=== PATIENT | female | born 1995 | race Two or more races ===

== ENCOUNTER 2025-06-11 18:27 | Inpatient (IN) | payer MEDICAID, OTHER ==
[~2025-06-11] VITALS: Ht 167.6 cm; Wt 126.4 kg
[2025-06-11 18:51] LABS: Hematocrit 39.1 % (36.0-46.0); Hemoglobin 12.9 g/dL (12.2-16.2); Mean Corpuscular Hemoglobin 27.6 pg (28.0-32.0); Mean Corpuscular Volume 83.4 fL (80.0-100.0); Nucleated Red Blood Cells % 0.1 %
[2025-06-11 19:04] LABS: Albumin 4.8 g/dL (3.2-4.8); Anion Gap 8 (5-15); BUN/Creatinine Ratio 11.2 (10.0-20.0); Blood Urea Nitrogen 10 mg/dL (9-23); Calcium 9.9 mg/dL (8.7-10.4); Carbon Dioxide 28 mmol/L (20-31); Chloride 107 mmol/L (98-107); Glucose 102 mg/dL (74-106); Lipase 38 U/L (12-53); Potassium 3.9 mmol/L (3.5-5.1); Sodium 143 mmol/L (136-145); Total Protein 7.8 g/dL (5.7-8.2)
[2025-06-11 19:09] LABS: Alanine Aminotransferase 620 U/L (7-40); Alkaline Phosphatase 294 U/L (46-116); Bilirubin, Total 1.4 mg/dL (0.2-1.0)
[2025-06-11] MEDS: DICYCLOMINE HCL 10 MG CAP PO ONE (20:05)
[2025-06-11] MEDS: KETOROLAC TROMETH 60MG/2ML VIAL IM ONE (20:06)
--- NOTE | 2025-06-11 20:50 | ED.PDOC ---
GI ASSESSMENT HPI Comments 29 year old female c/o RUQ PAIN worse pain X 1 DAY. unprovoked, associated with nausea. h/o gallstones Chief Complaint: Abdominal Pain Time Seen by MD: 18:31 Allergies: Coded Allergies: NO KNOWN ALLERGIES (Unverified , 06/11/25) Information Source: Patient Mode of Arrival: Ambulatory Duration: Since onset Past Medical History PAST MEDICAL HISTORY: Denies Past Medical History (Other): gallstones Social History Smoker: Non-Smoker Alcohol: Denies ETOH Use Drugs: Denies Drug Use Constitutional: reports: malaise, others Gastrointestinal: reports: abdominal pain, nausea All Other Systems: Reviewed and Negative Physical Exam General Appearance: Moderate Distress HEENT: Normal ENT Inspection, Pharynx Normal, TMs Normal Neck: Full Range of Motion, Non-Tender, Normal, Normal Inspection Respiratory: Chest Non-Tender, Lungs Clear, No Accessory Muscle Use, No Respir atory Distress, Normal Breath Sounds Cardiovascular: No Edema, No JVD, No Murmur, No Gallop, Normal Peripheral Pulses, Regular Rate/Rhythm Breast Exam: Deferred Gastrointestinal: Tenderness Genitalia: Deferred Pelvic: Deferred Rectal: Deferred Extremities: No calf tenderness, Normal capillary refill, Normal inspection, Normal range of motion, Non-tender, No pedal edema Musculoskeletal : Apperance: Normal Neurologic: Alert, 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 Was a procedure done?: No GI differential Dx Differential Diagnosis: Cholangitis, Cholecystitis, Diverticular disease, Gastritis/PUD, Gastroenteritis, GI hemorrhage, Pancreatitis, Kidney Stone, Other X-Ray, Labs, Meds, VS Vital Signs Date Time Temp Pulse Resp B/P (MAP) Pulse Ox O2 Delivery O2 Flow Rate FiO2 06/11/25 20:57 Room Air* 0 21 06/11/25 19:43 89 20 100 Room Air 06/11/25 19:43 98.3 89 20 120/81 (94) 100 98.3 06/11/25 18:29 98.3 93 13 123/85 100 98.3 Lab Test 06/11/25 21:27 06/11/25 18:42 Range/Units Urine Color Dark-yellow Yellow Urine Clarity Turbid H Clear Urine pH 6.5 5.0-9.0 Urine Specific [place] 1.036 H 1.001-1.035 Urine Protein Trace H Negative Urine Ketones Negative Negative Urine Blood Negative Negative /uL Urine Nitrite Negative Negative Urine Bilirubin 1+ H Negative Urine Urobilinogen 12 H Negative mg/dL Urine Leukocyte Esterase Trace Negative /uL Urine RBC 1 0 - 4 /hpf Urine Microscopic WBC 2 0-5 /HPF Urine Squamous Epithelial Cells Mod <5 /hpf Urine Bacteria Few H None Seen /hpf Urine Mucus Few None Seen Urine Glucose Normal Normal mg/dL Urine Test Negative Negative White Blood Count 3.7 L 4.4-10.8 10^3/uL Red Blood Count 4.70 4.0-5.20 10^6/uL Hemoglobin 12.9 12.2-16.2 g/dL Hematocrit 39.1 36.0-46.0 % Mean Corpuscular Volume 83.4 80.0-100.0 fL Mean Corpuscular Hemoglobin 27.6 L 28.0-32.0 pg Mean Corpuscular Hemoglobin Concent 33.1 32.0-36.0 g/dL Red Cell Distribution Width 14.3 11.8-14.3 % Platelet Count 213 140-450 10^3/uL Mean Platelet Volume 9.7 6.9-10.8 fL Neutrophils (%) (Auto) 57.6 37.0-80.0 % Lymphocytes (%) (Auto) 31.2 10.0-50.0 % Monocytes (%) (Auto) 6.9 0.0-12.0 % Eosinophils (%) (Auto) 3.7 0.0-7.0 % Basophils (%) (Auto) 0.6 0.0-2.0 % Neutrophils # (Auto) 2.1 1.6-8.6 10 ^3/uL Lymphocytes # (Auto) 1.2 0.4-5.4 10 ^3/uL Monocytes # (Auto) 0.3 0-1.3 10 ^3/uL Eosinophils # (Auto) 0.1 0-0.8 10 ^3/uL Basophils # (Auto) 0 0-0.2 10 ^3/uL Nucleated Red Blood Cells 0.1 % Sodium Level 143 136-145 mmol/L Potassium Level 3.9 3.5-5.1 mmol/L Chloride Level 107 98-107 mmol/L Carbon Dioxide Level 28 20-31 mmol/L Anion Gap 8 5-15 Blood Urea Nitrogen 10 9-23 mg/dL Creatinine 0.89 0.550-1.02 mg/dL Glomerular Filtration Rate Calc 91 >90 mL/min BUN/Creatinine Ratio 11.2 10.0-20.0 Serum Glucose 102 74-106 mg/dL Calcium Level 9.9 8.7-10.4 mg/dL Total Bilirubin 1.4 H 0.2-1.0 mg/dL Aspartate Amino Transferase (AST) 327 H 13-40 U/L Alanine Aminotransferase (ALT) 620 H 7-40 U/L Alkaline Phosphatase 294 H 46-116 U/L Total Protein 7.8 5.7-8.2 g/dL Albumin 4.8 3.2-4.8 g/dL Lipase 38 12-53 U/L Current Medications Medications (Trade) Dose Ordered Sig/[place] Route Start Time Stop Time Status Last Admin Ketorolac Tromethamine (Toradol Injection) 30 mg ONCE ONCE IM 06/11/25 19:30 06/11/25 19:31 DC 06/11/25 20:06 Dicyclomine HCl (Bentyl Capsule) 20 mg ONCE ONCE PO 06/11/25 19:30 06/11/25 19:31 DC 06/11/25 20:05 Time of 1ST Reevaluation: 19:30 Reevaluation 1ST: Unchanged Patient Education/Counseling: Diagnosis, Treatment Family Education/Counseling: No Family Present SEPSIS Sepsis Screen Date sepsis recognized/suspect: Jun 11, 2025 Time Sepsis recognized/suspect: 1943 Recent Procedure: No On Antibiotic Therapy: No Respiratory Rate >20: No Heart Rate >90: No Temp<36 C (96.8 F) or >38.3 C: No SBP <90 or MAP <65 mmHG: No New Acute Mental Status Change: No Is the patient on CPAP, BIPAP,: No Physician Orders Gallbladder (06/11/25 19:25) Vital Signs Date Time Temp Pulse Resp B/P (MAP) Pulse Ox O2 Delivery O2 Flow Rate FiO2 06/11/25 20:57 Room Air* 0 21 06/11/25 19:43 89 20 100 Room Air 06/11/25 19:43 98.3 89 20 120/81 (94) 100 98.3 06/11/25 18:29 98.3 93 13 123/85 100 98.3 Laboratory Tests Test 06/11/25 18:42 White Blood Count 3.7 10^3/uL (4.4-10.8) L Medications Medications Dose Ordered Sig/[place] Route Start Time Stop Time Status Last Admin Dose Admin Dicyclomine HCl 20 mg ONCE ONCE PO 06/11/25 19:30 06/11/25 19:31 DC 06/11/25 20:05 Ketorolac Tromethamine 30 mg ONCE ONCE IM 06/11/25 19:30 06/11/25 19:31 DC 06/11/25 20:06 Departure 1 Departure Time of Disposition: 22:17 Impression: Primary Impression: RUQ abdominal pain Additional Impression: Acute cholecystitis Disposition: ADMITTED INPATIENT Condition: Guarded Discharged With: Self Comments Patient's ultrasound suggests acute cholecystitis. Patient was given IV fluids and IV Zosyn antibiotics. Patient will need admission for supportive care and surgery consultation Critical Care Note Critical Care Time?: No Stability Stability form required: No Heart Score Heart Score: Heart Score Response (Comments) Value History N/A 0 EKG N/A 0 Age N/A 0 Risk Factors N/A 0 Troponin N/A 0 Total 0 ELYSSA BAR MD Jun 11, 2025 20:50
[2025-06-11] MEDS: ONDANSETRON HCL 4 MG/2 ML VIAL IV ONE (20:53)
[2025-06-11] MEDS: HYDROmorphone HCL 2 MG/ML VL/or syr IV ONE (20:53)
--- NOTE | 2025-06-11 21:28 | DVH ---
INDICATION: RUQ pain TECHNIQUE: Multiple real-time sonographic images of the abdomen were obtained. COMPARISON: None FINDINGS: Hepatic parenchyma consistent with steatosis The liver measures 17 cm. No intrahepatic biliary ductal dilatation is noted. The gallbladder wall measures 0. 3 2 cm and is minimally thickened. Stones and sludge are noted in the gallbladder. The common duct measures 11.2 mm and is mildly dilated. No pericholecystic fluid is noted. Positive sonographic Morris's sign. The right kidney measures 10.62 cm. No hydronephrosis. The pancreas is not well visualized due to obscuration from bowel gas. IMPRESSION: 1. Gallbladder is distended with sludge and stones. Minimally thickened gallbladder wall is seen with mildly dilated common bile duct. Positive sonographic Morris's sign is seen suggesting acute cholecystitis. 2. Liver measures 17 cm in length with parenchymal changes consistent with steatosis.
[2025-06-11 22:00] LABS: Urine Protein, UAD TRACE (Negative)
[2025-06-11] MEDS ORDERED: ONDANSETRON HCL 4 MG/2 ML VIAL IV PRN (23:15)
--- NOTE | 2025-06-11 23:42 | DVH ---
CHEST RADIOGRAPH Indication: preop Technique: Single frontal view of the chest was obtained COMPARISON: CT ABD/PEL on DOS: 05/01/25 FINDINGS: Lines and Tubes: None Lungs: Clear Pleura: No effusion. No pneumothorax. Cardiomediastinal contours: Unremarkable Bones: Unremarkable IMPRESSION: 1. No acute disease.
[2025-06-11 23:43] LABS: INR 1.09 (0.9-1.15); Partial Thromboplastin Time 29.9 SEC (24.5-34.5); Prothrombin Time 11.5 sec (9.3-11.8)
[2025-06-12] VITALS (9 sets, daily range): BP systolic 104–124; BP diastolic 57–80; PULSE 59–111; RESP 16–21; TEMP 97.3–98.6; O2SAT 95–99
[2025-06-12] MEDS: SODIUM CHLORIDE 0.9% 1,000 ML IV ONE ×2 (00:05→03:49)
[2025-06-12] MEDS: PANTOPRAZOLE 40 MG/10 ML VIAL INJ IV ONE (00:09)
[2025-06-12] MEDS: PIPERACILLIN-TAZOB 3.375GM 100 ML IV ONE (00:10)
--- NOTE | 2025-06-12 00:12 | DVHHP2 ---
History of Present Illness Reason for Visit: Abdominal pain History of Present Illness 29-year-old female presents for evaluation of abdominal pain. Patient reports a two month history of right upper quadrant that was initially intermittent. She states that over the past three days he has become more constant and worsens after eating a meal. She describes it as sharp nonradiating. Reports episodes of nausea without vomiting. She states being diagnosed with gallstones in the past. Past Medical History Gallstones Past Surgical History Denies Family History Noncontributory Smoke: No ALCOHOL: none Drugs: None Lives: with Family Review of Systems Review of Systems Review of systems are currently negative otherwise addressed in HPI. Allergies: Coded Allergies: NO KNOWN ALLERGIES (Unverified , 06/11/25) Medications Current Medications Medications Dose Ordered Sig/[place] Route Start Time Stop Time Status Last Admin Dose Admin Piperacillin Sod/ Tazobactam Sod 100 ml @ 25 mls/hr Q8H IV 06/12/25 05:00 Pantoprazole Sodium 40 mg DAILY IV 06/12/25 10:00 Ondansetron HCl 4 mg Q4HP PRN IV 06/11/25 23:15 Exam Vital Signs Vital Signs Date Time Temp Pulse Resp B/P (MAP) Pulse Ox O2 Delivery O2 Flow Rate FiO2 06/11/25 20:57 Room Air* 0 21 06/11/25 19:43 89 20 100 06/11/25 19:43 98.3 120/81 (94) 98.3 Exam Gen: 29-year-old female, morbidly obese Skin: Warm, dry, normal color and texture, no rash. HEENT: Normocephalic atraumatic, mucous membranes moist and pink. Neck: Cervical and supraclavicular nodes normal without enlargement, trachea is midline, thyroid gland is normal without masses. Pulmonary: Clear to auscultation and percussion bilaterally. Cardiac: Regular rate and rhythm. No murmur Abdomen: Soft, right upper quadrant tenderness, nondistended, bowel sounds present all 4 quadrants, no guarding, no rigidity, no organomegaly. Extremities: No cyanosis, clubbing, no edema Neuro: Cranial nerves II through XII grossly intact, normal affect and speech, no focal motor deficits. Labs/Xrays ORDERING PHYSICIAN: ELYSSA BAR MD PROCEDURE(s): GBUS - GALLBLADDER REASON: RUQ pain ORDER NUMBER(s): [id number], ACCESSION NUMBER(s): [id number] INDICATION: RUQ pain TECHNIQUE: Multiple real-time sonographic images of the abdomen were obtained. COMPARISON: None FINDINGS: Hepatic parenchyma consistent with steatosis The liver measures 17 cm. No intrahepatic biliary ductal dilatation is noted. The gallbladder wall measures 0. 3 2 cm and is minimally thickened. Stones and sludge are noted in the gallbladder. The common duct measures 11.2 mm and is mildly dilated. No pericholecystic fluid is noted. Positive sonographic Morris's sign. The right kidney measures 10.62 cm. No hydronephrosis. The pancreas is not well visualized due to obscuration from bowel gas. IMPRESSION: 1. Gallbladder is distended with sludge and stones. Minimally thickened gallbladder wall is seen with mildly dilated common bile duct. Positive sonographic Morris's sign is seen suggesting acute cholecystitis. 2. Liver measures 17 cm in length with parenchymal changes consistent with steatosis. RING PHYSICIAN: JAKE SWAIN PROCEDURE(s): CXR1 - CHEST XRAY 1 VIEW REASON: preop ORDER NUMBER(s): [id number], ACCESSION NUMBER(s): [id number] CHEST RADIOGRAPH Indication: preop Technique: Single frontal view of the chest was obtained COMPARISON: CT ABD/PEL on DOS: 05/01/25 FINDINGS: Lines and Tubes: None Lungs: Clear Pleura: No effusion. No pneumothorax. Cardiomediastinal contours: Unremarkable Bones: Unremarkable IMPRESSION: 1. No acute disease. Labs Test 06/11/25 23:20 06/11/25 21:27 06/11/25 18:42 Range/Units Prothrombin Time 11.5 9.3-11.8 sec Prothrombin Time INR 1.09 0.9-1.15 Activated Partial Thromboplast Time 29.9 24.5-34.5 SEC Urine Color Dark-yellow Yellow Urine Clarity Turbid H Clear Urine pH 6.5 5.0-9.0 Urine Specific [place] 1.036 H 1.001-1.035 Urine Protein Trace H Negative Urine Ketones Negative Negative Urine Blood Negative Negative /uL Urine Nitrite Negative Negative Urine Bilirubin 1+ H Negative Urine Urobilinogen 12 H Negative mg/dL Urine Leukocyte Esterase Trace Negative /uL Urine RBC 1 0 - 4 /hpf Urine Microscopic WBC 2 0-5 /HPF Urine Squamous Epithelial Cells Mod <5 /hpf Urine Bacteria Few H None Seen /hpf Urine Mucus Few None Seen Urine Glucose Normal Normal mg/dL Urine Test Negative Negative White Blood Count 3.7 L 4.4-10.8 10^3/uL Red Blood Count 4.70 4.0-5.20 10^6/uL Hemoglobin 12.9 12.2-16.2 g/dL Hematocrit 39.1 36.0-46.0 % Mean Corpuscular Volume 83.4 80.0-100.0 fL Mean Corpuscular Hemoglobin 27.6 L 28.0-32.0 pg Mean Corpuscular Hemoglobin Concent 33.1 32.0-36.0 g/dL Red Cell Distribution Width 14.3 11.8-14.3 % Platelet Count 213 140-450 10^3/uL Mean Platelet Volume 9.7 6.9-10.8 fL Neutrophils (%) (Auto) 57.6 37.0-80.0 % Lymphocytes (%) (Auto) 31.2 10.0-50.0 % Monocytes (%) (Auto) 6.9 0.0-12.0 % Eosinophils (%) (Auto) 3.7 0.0-7.0 % Basophils (%) (Auto) 0.6 0.0-2.0 % Neutrophils # (Auto) 2.1 1.6-8.6 10 ^3/uL Lymphocytes # (Auto) 1.2 0.4-5.4 10 ^3/uL Monocytes # (Auto) 0.3 0-1.3 10 ^3/uL Eosinophils # (Auto) 0.1 0-0.8 10 ^3/uL Basophils # (Auto) 0 0-0.2 10 ^3/uL Nucleated Red Blood Cells 0.1 % Sodium Level 143 136-145 mmol/L Potassium Level 3.9 3.5-5.1 mmol/L Chloride Level 107 98-107 mmol/L Carbon Dioxide Level 28 20-31 mmol/L Anion Gap 8 5-15 Blood Urea Nitrogen 10 9-23 mg/dL Creatinine 0.89 0.550-1.02 mg/dL Glomerular Filtration Rate Calc 91 >90 mL/min BUN/Creatinine Ratio 11.2 10.0-20.0 Serum Glucose 102 74-106 mg/dL Calcium Level 9.9 8.7-10.4 mg/dL Total Bilirubin 1.4 H 0.2-1.0 mg/dL Aspartate Amino Transferase (AST) 327 H 13-40 U/L Alanine Aminotransferase (ALT) 620 H 7-40 U/L Alkaline Phosphatase 294 H 46-116 U/L Total Protein 7.8 5.7-8.2 g/dL Albumin 4.8 3.2-4.8 g/dL Lipase 38 12-53 U/L SEPSIS Sepsis Screen Date sepsis recognized/suspect: Jun 11, 2025 Time Sepsis recognized/suspect: 1943 Recent Procedure: No On Antibiotic Therapy: No Respiratory Rate >20: No Heart Rate >90: No Temp<36 C (96.8 F) or >38.3 C: No SBP <90 or MAP <65 mmHG: No New Acute Mental Status Change: No Is the patient on CPAP, BIPAP,: No Physician Orders Gallbladder (06/11/25 19:25) * Surgical Consult (06/11/25 ) Type And Screen (06/11/25 23:06) Chest Xray 1 View (06/11/25 23:06) Piperacillin-Tazob 3.375gm (Zosyn 3.375g (06/12/25 05:00) Pantoprazole (Protonix) (06/12/25 10:00) Sodium Chloride 0.9% (06/11/25 23:15) Admit (06/11/25 23:06) Ondansetron Hcl (Zofran) (06/11/25 23:15) Complete Blood Count (06/12/25 04:00) Comprehensive Metabolic Panel (06/12/25 04:00) Npo (Nothing By Mouth) Diet (06/12/25 Breakfast) Condition: Stable (06/11/25 23:06) Bedrest With Bathroom Privileg (06/11/25 23:06) Morphine Sulfate Injection (06/12/25 00:15) Vital Signs Date Time Temp Pulse Resp B/P (MAP) Pulse Ox O2 Delivery O2 Flow Rate FiO2 06/11/25 20:57 Room Air* 0 21 06/11/25 19:43 89 20 100 Room Air 06/11/25 19:43 98.3 89 20 120/81 (94) 100 98.3 06/11/25 18:29 98.3 93 13 123/85 100 98.3 Laboratory Tests Test 06/11/25 18:42 White Blood Count 3.7 10^3/uL (4.4-10.8) L Medications Medications Dose Ordered Sig/[place] Route Start Time Stop Time Status Last Admin Dose Admin Dicyclomine HCl 20 mg ONCE ONCE PO 06/11/25 19:30 06/11/25 19:31 DC 06/11/25 20:05 20 MG Ketorolac Tromethamine 30 mg ONCE ONCE IM 06/11/25 19:30 06/11/25 19:31 DC 06/11/25 20:06 30 MG Assessment/Plan Assessment/Plan Assessment Acute cholecystitis Neutropenia Transaminitis Morbid obesity Plan Admit the patient to [facility] to the hospitalist NPO Surgical consult Pain management Maintenance IV fluids Continue treatment per orders. Plan discussed with: Patient My Orders Orders - JAKE SWAIN Procedure Category Date Status Time * Surgical Consult CONS 06/11/25 Transmitted Type And Screen BBK 06/11/25 In Process 23:06 Chest Xray 1 View XY 06/11/25 Resulted 23:06 Piperacillin-Tazob PHA 06/12/25 In Process 3.375gm (Zosyn 3.375g 05:00 Pantoprazole PHA 06/12/25 In Process (Protonix) 10:00 Sodium Chloride 0.9% PHA 06/11/25 In Process 23:15 Admit ADMIT 06/11/25 Transmitted 23:06 Ondansetron Hcl PHA 06/11/25 In Process (Zofran) 23:15 Complete Blood Count LAB 06/12/25 Logged 04:00 Comprehensive LAB 06/12/25 Logged Metabolic Panel 04:00 Npo (Nothing By DIET 06/12/25 Transmitted Mouth) Diet Breakfast Condition: Stable LALA 06/11/25 In Process 23:06 Bedrest With Bathroom LALA 06/11/25 In Process Privileg 23:06 Morphine Sulfate PHA 06/12/25 Transmitted Injection 00:15 Date of Service: Jun 11, 2025 Billing Provider: JAKE SWAIN Common Visit Codes: [id number] INP/OBS CARE (HIGH) JAKE SWAIN AGACNP Jun 12, 2025 00:12
[2025-06-12] MEDS: MORPHINE SULFATE INJ 2 MG/ml SYRG IV PRN (01:02)
[2025-06-12] MEDS ORDERED: PIPERACILLIN-TAZOB 3.375GM 100 ML IV SCH (05:00)
[2025-06-12 06:08] LABS: Hematocrit 34.9 % (36.0-46.0); Hemoglobin 11.8 g/dL (12.2-16.2); Mean Corpuscular Hemoglobin 28.2 pg (28.0-32.0); Mean Corpuscular Volume 83.5 fL (80.0-100.0); Nucleated Red Blood Cells % 0.1 %
[2025-06-12 06:32] LABS: Albumin 3.8 g/dL (3.2-4.8); Anion Gap 11 (5-15); BUN/Creatinine Ratio 11.4 (10.0-20.0); Carbon Dioxide 22 mmol/L (20-31); Glucose 88 mg/dL (74-106); Sodium 143 mmol/L (136-145); Total Protein 6.3 g/dL (5.7-8.2)
[2025-06-12 06:34] LABS: Alanine Aminotransferase 591 U/L (7-40); Alkaline Phosphatase 263 U/L (46-116); Bilirubin, Total 1.8 mg/dL (0.2-1.0); Blood Urea Nitrogen 9 mg/dL (9-23); Calcium 8.7 mg/dL (8.7-10.4); Chloride 110 mmol/L (98-107); Potassium 3.5 mmol/L (3.5-5.1)
[2025-06-12] MEDS: PIPERACILLIN-TAZOB 3.375GM 100 ML IV SCH ×2 (08:16→15:12)
[2025-06-12] MEDS: PANTOPRAZOLE 40 MG/10 ML VIAL INJ IV SCH (08:16)
--- NOTE | 2025-06-12 10:24 | DVHPN2 ---
Progress Note Date Seen: Jun 12, 2025 Medical Necessity Reason Pt with a Central, PICC or Fol: No Subjective Patient reports: No new complaints Review of Systems: HEENT:Normal, CVS:Normal, RESPIRATORY:Normal, GI:Normal, :Normal, MSK:Normal, NEURO:Normal Objective vital signs Vital Sign Date Time Temp Pulse Resp B/P (MAP) Pulse Ox O2 Delivery O2 Flow Rate FiO2 06/12/25 09:00 98.3 66 18 104/80 (88) 97 98.3 06/12/25 00:33 Room Air* 0 21 Total Intake and Output 06/11/25 06/11/25 06/12/25 15:00 23:00 07:00 Intake Total 1100 ml Balance 1100 ml medications Current Medications Medications Dose Ordered Sig/[place] Route Start Time Stop Time Status Last Admin Dose Admin Pantoprazole Sodium 40 mg DAILY IV 06/12/25 10:00 06/12/25 08:16 40 MG Ondansetron HCl 4 mg Q4HP PRN IV 06/11/25 23:15 Morphine Sulfate 2 mg Q6HPRN PRN IV 06/12/25 00:15 06/12/25 01:02 2 MG Piperacillin Sod/ Tazobactam Sod 100 ml @ 25 mls/hr Q8H IV 06/12/25 08:00 06/12/25 08:16 25 MLS/HR Examination: GENERAL:Normal, HEENT:Normal, NECK:Normal, LUNGS:Normal, CVS:Normal, ABDOMEN:Normal, MSK:Normal, SKIN:Normal, NEURO:Normal, :Normal laboratory and microbiology Laboratory Tests 06/12/25 05:05 Test 06/12/25 05:05 Range/Units Serum Glucose 88 74-106 mg/dL Problem List/Assessment/Plan Problem List/Assessment/Plan #1 acute natalie with gallstones: surg today, ivf, iv antibiotics #2 transaminitis #3 morbid obesity Plan discussed with: Patient My Orders My Orders Orders - JAKE VILLALOBOS MD Procedure Category Date Status Time Hydrocodone-Acet PHA 06/12/25 Verified 5/325mg Tab ([place] 10:30 Acetaminophen Tablet PHA 06/12/25 Verified (Tylenol Tablet) 10:30 NS PHA 06/12/25 Verified 10:30 Complete Blood Count LAB 06/13/25 Verified 06:00 Comprehensive LAB 06/13/25 Verified Metabolic Panel 06:00 Date of Service: Jun 12, 2025 Billing Provider: JAKE VILLALOBOS MD Common Visit Codes: [id number] INP/OBS CARE(HIGH) JAKE VILLALOBOS MD Jun 12, 2025 10:23
[2025-06-12] MEDS: SODIUM CHLORIDE 0.9% 1,000 ML IV SCH (10:30)
[2025-06-12] MEDS ORDERED: fentaNYL CITRATE 100 MCG/2 ML VL ONE ×3 (10:34→13:21)
[2025-06-12] MEDS ORDERED: PROPOFOL 10 MG/ML 20 ML IV ONE (10:36)
[2025-06-12] MEDS ORDERED: MEPERIDINE HCL (25 MG/ML) 1ML VIAL ONE (10:39)
[2025-06-12] MEDS ORDERED: ONDANSETRON HCL 4 MG/2 ML VIAL ONE ×2 (10:39→14:11)
[2025-06-12] MEDS ORDERED: ROCURONIUM 10MG/ML 10ML VIAL IV ONE ×2 (10:39→14:10)
--- NOTE | 2025-06-12 11:09 | DVHINCON2 ---
Consultation - Surgical Date Seen: Jun 12, 2025 Referring Physician Reason for Consultation Cholecystitis History of Present Illness History of Present Illness Mrs. Herring is a 29-year-old female who was admitted due to right upper quadrant and epigastric abdominal pain that started last night. Patient was very severe and persistent, only getting better with the pain medicines in the hospital. Patient has had this pain episodes in the past but they are getting more frequent. Denies nausea, vomiting, acholic stools, fevers, chills, darkening of urine. States that pain episodes or triggered by eating greasy foods. Past Medical/Surgical History Past Medical/Surgical History PMH denies PSH x3 Family and Social History Family and Social History Family history noncontributory ETOH/T Ob/drugs denies Allergies and medications Allergies: Coded Allergies: NO KNOWN ALLERGIES (Unverified , 06/11/25) Home Meds No Active Prescriptions or Reported Meds Review of systems Review of Systems: Deferred Examination Vital signs Vital Signs Date Time Temp Pulse Resp B/P (MAP) Pulse Ox O2 Delivery O2 Flow Rate FiO2 06/12/25 09:00 98.3 66 18 104/80 (88) 97 98.3 06/12/25 00:33 Room Air* 0 21 Medications Current Medications Medications (Trade) Dose Ordered Sig/[place] Route PRN Reason Start Time Stop Time Status Last Admin Piperacillin Sod/ Tazobactam Sod 100 ml @ 25 mls/hr Q8H IV 06/12/25 05:00 06/12/25 04:55 DC Pantoprazole Sodium (Protonix) 40 mg DAILY IV 06/12/25 10:00 06/12/25 08:16 Ondansetron HCl (Zofran) 4 mg Q4HP PRN IV NAUSEA / VOMITING 06/11/25 23:15 Morphine Sulfate 2 mg Q6HPRN PRN IV SEVERE PAIN (7-10 PAIN SCALE) 06/12/25 00:15 06/12/25 01:02 Piperacillin Sod/ Tazobactam Sod 100 ml @ 25 mls/hr Q8H IV 06/12/25 08:00 06/12/25 08:16 Acetaminophen/ Hydrocodone Bitart ([place] 5/325MG Tab) 1 tab Q6HPRN PRN PO MODERATE PAIN (4-6 PAIN SCALE) 06/12/25 10:30 UNV Acetaminophen (Tylenol Tablet) 650 mg Q6HP PRN PO MILD PAIN (1-3 PAIN SCALE) 06/12/25 10:30 UNV Sodium Chloride 1,000 ml @ 75 mls/hr [id number] IV 06/12/25 10:30 UNV Laboratory Labs Test 06/12/25 05:05 06/11/25 23:20 06/11/25 21:27 06/11/25 18:42 Range/Units White Blood Count 3.5 L 4.4-10.8 10^3/uL Red Blood Count 4.19 4.0-5.20 10^6/uL Hemoglobin 11.8 L 12.2-16.2 g/dL Hematocrit 34.9 #L 36.0-46.0 % Mean Corpuscular Volume 83.5 80.0-100.0 fL Mean Corpuscular Hemoglobin 28.2 28.0-32.0 pg Mean Corpuscular Hemoglobin Concent 33.7 32.0-36.0 g/dL Red Cell Distribution Width 14.1 11.8-14.3 % Platelet Count 181 140-450 10^3/uL Mean Platelet Volume 10.3 6.9-10.8 fL Neutrophils (%) (Auto) 42.6 37.0-80.0 % Lymphocytes (%) (Auto) 44.0 10.0-50.0 % Monocytes (%) (Auto) 8.4 0.0-12.0 % Eosinophils (%) (Auto) 4.7 0.0-7.0 % Basophils (%) (Auto) 0.3 0.0-2.0 % Neutrophils # (Auto) 1.5 L 1.6-8.6 10 ^3/uL Lymphocytes # (Auto) 1.6 0.4-5.4 10 ^3/uL Monocytes # (Auto) 0.3 0-1.3 10 ^3/uL Eosinophils # (Auto) 0.2 0-0.8 10 ^3/uL Basophils # (Auto) 0 0-0.2 10 ^3/uL Nucleated Red Blood Cells 0.1 % Sodium Level 143 136-145 mmol/L Potassium Level 3.5 3.5-5.1 mmol/L Chloride Level 110 H 98-107 mmol/L Carbon Dioxide Level 22 20-31 mmol/L Anion Gap 11 5-15 Blood Urea Nitrogen 9 9-23 mg/dL Creatinine 0.79 0.550-1.02 mg/dL Glomerular Filtration Rate Calc 105 >90 mL/min BUN/Creatinine Ratio 11.4 10.0-20.0 Serum Glucose 88 74-106 mg/dL Calcium Level 8.7 8.7-10.4 mg/dL Total Bilirubin 1.8 H 0.2-1.0 mg/dL Direct Bilirubin 1.2 H <0.3 mg/dL Aspartate Amino Transferase (AST) 292 H 13-40 U/L Alanine Aminotransferase (ALT) 591 H 7-40 U/L Alkaline Phosphatase 263 H 46-116 U/L Total Protein 6.3 5.7-8.2 g/dL Albumin 3.8 3.2-4.8 g/dL Prothrombin Time 11.5 9.3-11.8 sec Prothrombin Time INR 1.09 0.9-1.15 Activated Partial Thromboplast Time 29.9 24.5-34.5 SEC Urine Color Dark-yellow Yellow Urine Clarity Turbid H Clear Urine pH 6.5 5.0-9.0 Urine Specific [place] 1.036 H 1.001-1.035 Urine Protein Trace H Negative Urine Ketones Negative Negative Urine Blood Negative Negative /uL Urine Nitrite Negative Negative Urine Bilirubin 1+ H Negative Urine Urobilinogen 12 H Negative mg/dL Urine Leukocyte Esterase Trace Negative /uL Urine RBC 1 0 - 4 /hpf Urine Microscopic WBC 2 0-5 /HPF Urine Squamous Epithelial Cells Mod <5 /hpf Urine Bacteria Few H None Seen /hpf Urine Mucus Few None Seen Urine Glucose Normal Normal mg/dL Urine Test Negative Negative Lipase 38 12-53 U/L Examination: GENERAL:Normal, HEENT:Normal (No icterus), ABDOMEN:Normal (Large pannus, nondistended, soft, depressible, Pfannenstiel scar well healed, right upper quadrant tenderness, no rebound, no guarding) Problem List/Assessment/Plan Problems: (1) Acute cholecystitis Assessment and Plan Mrs. Herring is a 29-year-old female who presents with the acute cholecystitis. Ultrasound shows sludge and stones. She has transaminitis with a slightly elevated total bilirubin level at 1.8 with a direct component of 1.2. Patient will benefit from laparoscopic cholecystectomy. Procedure, risks, complications, benefits, and alternatives discussed with the patient. She would like to proceed with surgical plan. 1. On-call to OR for laparoscopic cholecystectomy, possible open 2. NPO 3. A.m. labs 4. Pain nausea control Plan discussed with Plan discussed with: Patient, Spouse Visit Coding Surgery Date of Service if different f: Jun 12, 2025 Billing Provider: SAMEERA ASGE MD Surgery Visit Codes: [id number] - INP CONSULT <110 MIN SAMEERA SAGE MD Jun 12, 2025 11:09
[2025-06-12] MEDS ORDERED: SUGAMMADEX 200mg/2ml Vial (100MG/ML) IV ONE (13:27)
[2025-06-12] MEDS: BUPIVACAINE 0.25% INJ 50ML VIAL ONE (13:35)
--- NOTE | 2025-06-12 13:57 | DVHOP2 ---
Operative Report - 2 Report Details Date: 06/12/25 Preop Diagnosis: Acute cholecystitis Postop Diagnosis: Same Surgeon: Harvey Lawrence MD Baker Bench: Angelo Ramirez NP Anesthesiologist: Dr. King Anesthesia: General Consent: The patient was informed of the risks and benefits of the procedure. These include but are not limited to complications of anesthesia, postoperative infection, incomplete relief of symptoms, recurrence of symptoms, damage to blood vessels, nerves and tendons, deep venous thrombosis, pulmonary embolism and possible need for repeat surgery in the future. Estimated Blood Loss: 5 mL Findings: Extremely large gallbladder with large stone stuck at the neck, dense overlying peritoneum, thin omental adhesions to gallbladder. Indications for Surgery: Acute cholecystitis Name of Procedure Performed Laparoscopic cholecystectomy Procedure Details Procedure Details: Upon arriving to the operating room the patient was transferred to the operating table and placed in the supine position with arms extended. General endotracheal anesthesia was induced. Time-out was observed. Patient was prepped and draped in the standard sterile surgical fashion with chlorhexidine. I then proceeded to make an infraumbilical curvilinear incision and dissected down to fascia. Once at the fascia I grasped the umbilical stalk and walked it down to its base. Once at the umbilical base I proceeded to make a vertical midline incision of the fascia. I was having trouble identifying the bowel was in the preperitoneal space or in the peritoneal cavity surrounded by adhesions. I decided that the safest way to go was to gained entry to the peritoneal cavity utilizing Veress needle technique. I then made a 5 mm incision at justice's point and inserted the Veress needle, and insufflated the peritoneal cavity to 15 mmHg with toleration. I then placed a 5 mm trocar at justice's point utilizing Optiview. I surveyed the entry site no injuries noted. I then surveyed the peritoneal cavity and noted some omental adhesions to the anterior abdominal wall at the umbilical level. I was not in the peritoneal cavity with the infraumbilical incision. I then placed a 12 mm port at the previous fascial opening at the umbilicus under direct vision. I then switched the camera to a 10 mm 30 degree camera and placed it through the infraumbilical port site. Patient was then placed in the reverse Trendelenburg [id number] position. I then placed 3 additional working ports under direct vision at the epigastric area right midclavicular subcostal area and right flank area. I then directed the attention to the liver and gallbladder. The gallbladder was extremely large extending past the liver edge approximately 8cm. Grasped around the senior living point and retracted superiorly and towards the right shoulder. The gallbladder has some thin omental adhesions to it, they were lysed with cautery. A 2nd grasper was used to grasp the infundibulum area. There was a large stone stuck at the infundibulum gallbladder neck area. I used the infundibulum retractor to retract the gallbladder laterally. Exposing Calot triangle. I then proceeded to incise the overlying peritoneum at the base of the gallbladder on either side towards the liver. Cholesterol angle was identified. I then carefully dissected Calot triangle off of fibrous and fatty tissue. I was able to identify a thick and short cystic duct. I was not able to identify any major cystic artery, only 2 small posterior branches. I then placed 3 5 mm clips proximal on the cystic duct and 2 distal and transected the duct. I then started taking the gallbladder off of the liver bed with cautery, here I encountered 2 small cystic artery posterior branches that were clipped once proximal and cauterized superiorly. Once the gallbladder was completely off of the liver it was placed in the Endo-Catch bag and taken out of the peritoneal cavity through the infraumbilical site. Utilizing the Mario-Mackenzie device I placed a fascial stitch of 0 Vicryl at the 12 mm port site, and held it in place with Deepthi clamp. I then proceeded to inspect the liver bed, no bleeding was noted. I did have some minimal bile spillage from a grasper site in the gallbladder. Gallbladder fossa and over the liver I irrigated copiously and serially until effluent was clear. I then inspected the surgical clips they were all in place. This concluded the intraperitoneal portion of the procedure. All counts complete and correct. All 5 mm port sites were removed under direct vision, no bleeding from abdominal wall. Peritoneal cavity was allowed to fully desufflate. Fascial retention stitch was closed. 0.25% Marcaine was used as local anesthetic. All skin sites were closed with 4-0 Monocryl and Dermabond. Patient tolerated the procedure well and was transferred to PACU in stable condition. Specimen: Gallbladder and contents Condition Stable Disposition Still a Patient HARVEY SAGE MD 5, 2025 13:57
[2025-06-12] MEDS ORDERED: METOCLOPRAMIDE HCL 5MG/ml INJ 2ml VIAL IV PRN (14:00)
[2025-06-12] MEDS ORDERED: ACETAMINOPHEN IV 1000 MG/100ML (10MG/ML) IV PRN (14:00)
[2025-06-12] MEDS ORDERED: HYDROmorphone HCL 2 MG/ML VL/or syr IV PRN (14:00)
[2025-06-12] MEDS ORDERED: MEPERIDINE HCL (25 MG/ML) 1ML VIAL IV PRN (14:00)
[2025-06-12] MEDS ORDERED: ONDANSETRON HCL 4 MG/2 ML VIAL IV PRN (14:00)
[2025-06-12] MEDS: SUCCINYLCHOLINE CHLORIDE 20 MG/ML 10ML VIAL IV ONE (14:03)
[2025-06-12] MEDS: HYDROcodone-ACET 5/325MG TAB PO PRN (17:34)
[2025-06-13 05:00] VITALS: BP 122/73; PULSE 63; RESP 18; TEMP 98; O2SAT 96
[2025-06-13 05:58] LABS: Hematocrit 37.7 % (36.0-46.0); Hemoglobin 12.4 g/dL (12.2-16.2); Mean Corpuscular Hemoglobin 27.6 pg (28.0-32.0); Mean Corpuscular Volume 83.6 fL (80.0-100.0); Nucleated Red Blood Cells % 0.0 %
[2025-06-13 06:17] LABS: Albumin 4.4 g/dL (3.2-4.8); Anion Gap 9 (5-15); BUN/Creatinine Ratio 9.6 (10.0-20.0); Calcium 9.4 mg/dL (8.7-10.4); Carbon Dioxide 25 mmol/L (20-31); Potassium 4.2 mmol/L (3.5-5.1); Sodium 143 mmol/L (136-145); Total Protein 7.2 g/dL (5.7-8.2)
[2025-06-13 06:18] LABS: Bilirubin, Total 0.6 mg/dL (0.2-1.0)
[2025-06-13 06:22] LABS: Alanine Aminotransferase 590 U/L (7-40); Bilirubin, Direct 0.3 mg/dL (<0.3); Blood Urea Nitrogen 8 mg/dL (9-23); Chloride 109 mmol/L (98-107); Glucose 161 mg/dL (74-106)
[2025-06-13 06:33] LABS: Alkaline Phosphatase 285 U/L (46-116)
[2025-06-13 07:50] VITALS: PULSE 60; RESP 16; O2SAT 96
[2025-06-13 09:00] VITALS: BP 122/80; PULSE 60; RESP 16; TEMP 98.2; O2SAT 96
--- NOTE | 2025-06-13 09:57 | DVHPN2 ---
Progress Note - Surgical Date Seen: Jun 13, 2025 Post op day Post op day: 1 Subjective Patient reports: Feels better (Patient feeling much better today, only complaints are pain around the incision sites, tolerated diet no nausea no vomiting afebrile with vital stable) Review of Systems: Deferred Objective Vital signs Vital Sign Date Time Temp Pulse Resp B/P (MAP) Pulse Ox O2 Delivery O2 Flow Rate FiO2 06/13/25 07:50 60 16 96 Room Air* 0 21 06/13/25 05:00 98.0 122/73 (89) 98.0 Total Intake and Output 06/12/25 06/12/25 06/13/25 15:00 23:00 07:00 Intake Total 200 ml 600 ml 400 ml Balance 200 ml 600 ml 400 ml Medications Current Medications Medications Dose Ordered Sig/[place] Route Start Time Stop Time Status Last Admin Dose Admin Pantoprazole Sodium 40 mg DAILY IV 06/12/25 10:00 06/13/25 09:43 40 MG Ondansetron HCl 4 mg Q4HP PRN IV 06/11/25 23:15 Morphine Sulfate 2 mg Q6HPRN PRN IV 06/12/25 00:15 06/12/25 20:50 2 MG Acetaminophen/ Hydrocodone Bitart 1 tab Q6HPRN PRN PO 06/12/25 10:30 06/13/25 03:53 1 TAB Acetaminophen 650 mg Q6HP PRN PO 06/12/25 10:30 Sodium Chloride 1,000 ml @ 75 mls/hr [id number] IV 06/12/25 10:30 06/12/25 23:51 75 MLS/HR Piperacillin Sod/ Tazobactam Sod 100 ml @ 25 mls/hr Q6H IV 06/12/25 14:00 06/13/25 08:17 25 MLS/HR Laboratory Laboratory Tests 06/13/25 05:11 Test 06/13/25 05:11 Range/Units Serum Glucose 161 H 74-106 mg/dL Examination: GENERAL:Normal, HEENT:Normal (No icterus), ABDOMEN:Normal (Nondistended, soft, depressible incisions with skin glue overlying limb and without surrounding signs of infection, appropriate tenderness) Labs and/or images reviewed: Labs reviewed by me (No leukocytosis hemoglobin stable) Problem List/Assessment/Plan Problems: (1) Acute cholecystitis Assessment and Plan Mrs. Herring is a 29-year-old female who presented with the acute cholecystitis, and is currently postop day 2 from laparoscopic cholecystectomy. Patient doing well after surgery, tolerating diet, afebrile with vital stable, LFTs unremarkable. Patient is cleared for discharge per surgical standpoint. 1. Cleared for discharge 2. Maintain low-fat diet 3. No lifting over 10 lb for 6-8 weeks 4. May shower, soap and water okay to run over incisions. No swimming or bathing for 2 weeks. 5. 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 [place] 5-325 mg 1 tab p.o. every 6 hours p.r.n. severe pain 7. No driving while taking narcotics 8. Follow up with Dr. Garber at surgery [facility] in 2 weeks please call for appointment My Orders My Orders Orders - SAMEERA SAGE MD Procedure Category Date Status Time Obtain Consent For: ORDERS 06/12/25 Transmitted 10:06 Obtain Consent For LALA 06/12/25 In Process Anesthesia 10:06 Cardiac DIET 06/12/25 Transmitted Diet-2gna,Lofat,Lochol Dinner Plan discussed with Plan discussed with: Patient Visit Coding Surgery Date of Service if different f: Jun 13, 2025 Billing Provider: SAMEERA SAGE MD Surgery Visit Codes: [id number] INP/OBS CARE(HIGH) SAMEERA SAGE MD Jun 13, 2025 09:57
[2025-06-13] MEDS ORDERED: HYDR-4902 PO (10:00)
[2025-06-13] MEDS ORDERED: CEPH500T PO (10:44)
[2025-06-13] MEDS ORDERED: DOCU-94 PO (10:44)
[2025-06-13] MEDS ORDERED: HYDR1TAB97 PO (10:44)
--- NOTE | 2025-06-13 10:45 | DVHDS2 ---
Discharge Summary Date of Admission Jun 11, 2025 at 23:06 Date of Discharge: Jun 13, 2025 Labs/Diagnostic Data: Laboratory Results Test 06/13/25 05:11 06/11/25 23:20 06/11/25 21:27 06/11/25 18:42 White Blood Count 7.9 10^3/uL (4.4-10.8) Red Blood Count 4.51 10^6/uL (4.0-5.20) Hemoglobin 12.4 g/dL (12.2-16.2) Hematocrit 37.7 % (36.0-46.0) Mean Corpuscular Volume 83.6 fL (80.0-100.0) Mean Corpuscular Hemoglobin 27.6 pg (28.0-32.0) Mean Corpuscular Hemoglobin Concent 33.0 g/dL (32.0-36.0) Red Cell Distribution Width 14.6 % (11.8-14.3) Platelet Count 204 10^3/uL (140-450) Mean Platelet Volume 10.1 fL (6.9-10.8) Neutrophils (%) (Auto) 92.9 % (37.0-80.0) Lymphocytes (%) (Auto) 5.5 % (10.0-50.0) Monocytes (%) (Auto) 1.5 % (0.0-12.0) Eosinophils (%) (Auto) 0.0 % (0.0-7.0) Basophils (%) (Auto) 0.1 % (0.0-2.0) Neutrophils # (Auto) 7.3 10 ^3/uL (1.6-8.6) Lymphocytes # (Auto) 0.4 10 ^3/uL (0.4-5.4) Monocytes # (Auto) 0.1 10 ^3/uL (0-1.3) Eosinophils # (Auto) 0 10 ^3/uL (0-0.8) Basophils # (Auto) 0 10 ^3/uL (0-0.2) Nucleated Red Blood Cells 0.0 % Sodium Level 143 mmol/L (136-145) Potassium Level 4.2 mmol/L (3.5-5.1) Chloride Level 109 mmol/L (98-107) Carbon Dioxide Level 25 mmol/L (20-31) Anion Gap 9 (5-15) Blood Urea Nitrogen 8 mg/dL (9-23) Creatinine 0.83 mg/dL (0.550-1.02) Glomerular Filtration Rate Calc 99 mL/min (>90) BUN/Creatinine Ratio 9.6 (10.0-20.0) Serum Glucose 161 mg/dL (74-106) Calcium Level 9.4 mg/dL (8.7-10.4) Total Bilirubin 0.6 mg/dL (0.2-1.0) Direct Bilirubin 0.3 mg/dL (<0.3) Aspartate Amino Transferase (AST) 165 U/L (13-40) Alanine Aminotransferase (ALT) 590 U/L (7-40) Alkaline Phosphatase 285 U/L (46-116) Total Protein 7.2 g/dL (5.7-8.2) Albumin 4.4 g/dL (3.2-4.8) Prothrombin Time 11.5 sec (9.3-11.8) Prothrombin Time INR 1.09 (0.9-1.15) Activated Partial Thromboplast Time 29.9 SEC (24.5-34.5) Urine Color Dark-yellow (Yellow) Urine Clarity Turbid (Clear) Urine pH 6.5 (5.0-9.0) Urine Specific [place] 1.036 (1.001-1.035) Urine Protein Trace (Negative) Urine Ketones Negative (Negative) Urine Blood Negative /uL (Negative) Urine Nitrite Negative (Negative) Urine Bilirubin 1+ (Negative) Urine Urobilinogen 12 mg/dL (Negative) Urine Leukocyte Esterase Trace /uL (Negative) Urine RBC 1 /hpf (0 - 4) Urine Microscopic WBC 2 /HPF (0-5) Urine Squamous Epithelial Cells Mod /hpf (<5) Urine Bacteria Few /hpf (None Seen) Urine Mucus Few (None Seen) Urine Glucose Normal mg/dL (Normal) Urine Test Negative (Negative) Lipase 38 U/L (12-53) Other Laboratory Tests 06/13/25 05:11 Brief Hx & Hospital Course: see dictated note Condition at Discharge: Good Final Diagnosis/Problems List acute natalie Discharge Disposition: Home Discharge Instruct/Medications Diet: Cardiac 2g Na,low cholest Activity: No Restrictions, As Tolerated Follow Up/Referral: schedule appt with dr Garber in 1 wk Medications: script to pharmacy Scheduled Cephalexin Monohydrate (Cephalexin), 1 TAB PO TID Scheduled PRN Docusate Sodium (Colace), 1 CAP PO BID PRN Hydrocodone-Acetaminophen (Hydrocodone/Acetaminophen 5-325 mg), 1 TAB PO TIDPRN PRN Discharge Statement: "Patient was advised to return to the ER or call 911 if any headaches, dizziness, shortness of breath, chest pain, abdominal pain, bleeding, fevers, or worsening of medical condition. Patient was counseled about treatment plan, medications, possible side effects, patientverbalized understanding. All questions were answered to the best of my ability. This discharge took greater then 30 minutes in planning, reviewing documentation, counseling the patient, and discussing with other team members." ASSESSMENT ASSESSMENT Assessment acute natalie Date of Service: Jun 13, 2025 Billing Provider: JAKE VILLALOBOS MD Common Visit Codes: [id number] DISCH DAY >30min JAKE VILLALOBOS MD Jun 13, 2025 10:45
[2025-06-13] MEDS: ACETAMINOPHEN 325 MG TAB PO PRN (12:20)
[2025-06-13 13:00] VITALS: BP 121/74; PULSE 70; RESP 16; TEMP 98.4; O2SAT 95
[2025-06-13 13:29] VITALS: BP 121/74; PULSE 70; RESP 16; TEMP 36.7; O2SAT 95
--- NOTE | 2025-06-14 01:24 | DVHDS ---
DATE OF DISCHARGE: 06/13/2025 HISTORY OF PRESENT ILLNESS: The patient is a 29-year-old lady who is admitted with complaints of abdominal pain, worse after meals with episodes of nausea. HOSPITAL COURSE: The patient had an abdominal ultrasound that shows gallstones with sludge as well as a positive Morris sign. The patient had elevated liver function tests. She was seen in surgical consult by Dr. Garber. The patient underwent laparoscopic cholecystectomy on 06/12/2025. The patient is currently doing well and is tolerating an oral diet. The patient has been cleared for discharge. She will be discharged to be on [place] p.r.n. for pain, cephalexin 500 mg t.i.d. for 7 days, and Colace p.r.n. for constipation. She will follow up with Dr. Garber in 1 to 2 weeks. FINAL DIAGNOSES: * Acute cholecystitis with cholelithiasis status post laparoscopic cholecystectomy. * Transaminitis. * Morbid obesity. Time spent in discharge planning and review of plan with the patient and nursing was 37 minutes. MD RENÉ Becerra/MIKE TID: [id number] RECEIPT: [id number]
== END 2025-06-13 14:55 | disposition home or self-care (01) | DRG 263 ==
LOC: ER 18:27 → OVERFLOW 23:06 → EAST 23:51
PROVIDERS: ADMIT Internal Medicine; ATTEND Internal Medicine
PROC: 0FT44ZZ Resection of Gallbladder, Percutaneous Endoscopic Approach (ICD-10-PCS; principal; 2025-06-12 11:39)
DX: K80.00 Calculus of gallbladder with acute cholecystitis without obstruction (principal); E66.01 Morbid (severe) obesity due to excess calories; K66.0 Peritoneal adhesions (postprocedural) (postinfection); K59.00 Constipation, unspecified; R74.01 Elevation of levels of liver transaminase levels; Z98.891 History of uterine scar from previous surgery; Z79.899 Other long term (current) drug therapy; Z68.42 Body mass index [BMI] 45.0-49.9, adult
CPT/HCPCS: 36415; 71045; 76705; 80053; 81001; 81025; 82248; 83690; 85025; 85610; 85730; 86850; 86900; 86901; 96372; G0378; J0131; J0330; J0694; J1100; J1885; J2405; J2470; J2543; J2704; J3490